=== PATIENT | female | born 1995 | race Caucasian/White ===

== ENCOUNTER 2022-01-04 17:11 | Emergency (ER) | payer BC ==
[~2022-01-04] VITALS: Ht 167.6 cm; Wt 81.4 kg
[2022-01-04] MEDS ORDERED: REGLAN 10MG10 MG/TAB PO (19:00)
[2022-01-04 19:11] VITALS: BP 111/69; PULSE 90; TEMP 98.4
== END 2022-01-04 19:14 | disposition home or self-care (01) ==
LOC: COL.ER 17:11
DX: O21.9 Vomiting of pregnancy, unspecified (principal); Z3A.13 13 weeks gestation of pregnancy
CPT/HCPCS: J2765; J7030

== ENCOUNTER 2022-06-30 07:29 | Inpatient (IN) | payer BC ==
[2022-06-30] VITALS (27 sets, daily range): BP systolic 72–141; BP diastolic 34–85; PULSE 75–110; TEMP 98–98.3
[~2022-06-30] VITALS: Ht 167.6 cm; Wt 89.5 kg
[~2022-06-30 07:29] MED LIST: REGLAN 10MG10 MG/TAB PO
[2022-06-30] MEDS ORDERED: GLUCOPHAGE500 MG/TAB PO (07:49)
[2022-06-30] MEDS ORDERED: PEPCID 20MG TAB20 MG PO (07:49)
[2022-06-30] MEDS ORDERED: PRENATAL TABLET PO (07:50)
[2022-06-30] MEDS ORDERED: ZYRTEC 10MG10 MG PO (07:50)
--- NOTE | 2022-06-30 08:00 | NUR ---
0735- Pt arrives on unit ambulatory with spouse, complaints of UCs every 6mins since 0300 this morning. Pt instructed to void and change into gown. 0738- Pt into bed. EFM and TOCO on and tracing well. O2 sat monitor on and tracing maternal HR. VSS. SVE. Assessments completed.
--- NOTE | 2022-06-30 08:09 | NUR ---
0809- Dr Smith, monitoring analyst physician, called after multiple attempts to contact Dr Bassett, see physician notification. His phone going straight to , message left [phone].
[2022-06-30 08:39] LABS: BASO % 0.2 % (0.0-2.0); EOS # 0.1 K/mm3 (0.0-0.7); EOS % 0.5 % (0.0-4.0); GRAN % 82.2 % (42.2-75.2); HEMOGLOBIN 10.8 g/dl (12.5-16.0); LYMPH # 1.3 K/mm3 (1.2-3.4); LYMPH % 9.4 % (20.0-51.0); MEAN CELL VOLUME 83 fl (80.0-100.0); MEAN CORPUSCULAR HEMOGLOBIN 27 pg (27-31); MEAN CORPUSCULAR HGB CONC 33 g/dl (33.0-37.0); MEAN PLATELET VOLUME 11.5 fl (7.4-10.4); MONO % 7.1 % (1.7-9.3); PLATELET COUNT 264 K/mm3 (130-400); RED BLOOD COUNT 3.99 M/mm3 (4.10-5.30); REDCELL DISTRIBUTION WIDTH-CV 12.7 % (11.5-14.5)
[2022-06-30 08:40] LABS: HEMATOCRIT 33.2 % (37.0-47.0)
--- NOTE | 2022-06-30 08:40 | NUR ---
0840 PT SITTING UP ON BED PREPARING FOR EPIDURAL PLACEMENT. NORA HILL, AT BEDSIDE. LR BOLUS RUNNING PER PROTOCOL, BP CUFF AND PULSE OX IN PLACE. EFM TRACING CAT 1 AT THIS TIME. VITAL SIGNS STABLE. 0850 TEST DOSE ADMINISTERED PER NORA HILL. PT TOLERATED WELL. EFM TRACING CAT 1, VS STABLE, PT RETURNED TO LL POSITION AND COMFORTABLE. WILL CONTINUE TO MONITOR.
--- NOTE | 2022-06-30 09:25 | NUR ---
0925 DR. EATON AT BEDSIDE FOR SVE. SVE 7 AT THIS TIME. AROM COMPLETED AT THIS TIME, CLEAR FLUID. PT TOLERATED PROCEDURE WELL. EFM TRACING CAT 1. WILL CONTINUE TO MONITOR,
--- NOTE | 2022-06-30 12:00 | NUR ---
1200 PT CALLED OUT STATING AN INCREASE IN PRESSURE, THIS RN TO ROOM FOR SVE. PT COMPLETE AND [address] EATON NOTIFIED AT THIS TIME AND GAVE VORB TO START PUSHING 1208 STARTED PUSHING WITH PT. GOOD MATERNAL EFFORT, EFM TRACING CAT 1. VS STABLE. ROOM SET UP FOR DELIVERY. APPROPRIATE STAFF NOTIFIED. 130[address] OF VIABLE FEMALE PER DR. EATON. INFANT PLACED ON MOTHERS CHEST, CORD CUT, AND CARE OF ASSUMED BY ROOSEVELT GONZALEZ. [address] EATON. UTERINE ATONY NOTED. FUNDUS BOGGY. MODERATE BLEEDING NOTED. DR. EATON GIVING FUNDAL MASSAGE AT THIS TIME. RECEIVED VERBAL ORDER FOR METHERGINE DOSE PER DR. EATON. VITAL SIGNS STABLE. 1325 PT BLOOD PRESSURE 72/34. PT NAUSEOUS AND DIZZY. HEAD OF BED FLAT, LR BOLUS AND PITOCIN BOLUS RUNNING AT THIS TIME. BLEEDING SCANT. 1331 BP 91/51. PT REPORTS FEELING BETTER. BLEEDING SCANT. WILL CONTINUE TO MONITOR.
[2022-07-01] VITALS: BP 112/64; PULSE 74; TEMP 98.4
[2022-07-01 04:30] VITALS: BP 116/60; PULSE 72; TEMP 98
[2022-07-01 08:10] VITALS: BP 120/66; PULSE 85; TEMP 97.6
[2022-07-01] MEDS ORDERED: IBU600 MG PO (08:49)
--- NOTE | 2022-07-01 08:57 | NUR ---
Initial visit; Parents thanked Air Hammer Stripper for offering congratulations and God's blessings for the of their daughter. Air Hammer Stripper thanked family for choosing [facility].
[2022-07-01 19:30] VITALS: BP 120/72; PULSE 80; TEMP 97.9
[2022-07-02 05:16] VITALS: BP 110/69; PULSE 80; TEMP 98.6
[2022-07-02 07:00] VITALS: BP 127/69; PULSE 90; TEMP 98.2
== END 2022-07-02 13:30 | disposition home or self-care (01) | DRG 807 ==
LOC: LDRO 07:29 → LDR 07:35 → OB 07:35
PROVIDERS: ADMIT Obstetrics & Gynecology
PROC: 10E0XZZ Delivery of Products of Conception, External Approach (ICD-10-PCS; principal; 2022-06-30)
PROC: 0HQ9XZZ Repair Perineum Skin, External Approach (ICD-10-PCS; 2022-06-30)
PROC: 0UQMXZZ Repair Vulva, External Approach (ICD-10-PCS; 2022-06-30)
PROC: 3E033VJ Introduction of Other Hormone into Peripheral Vein, Percutaneous Approach (ICD-10-PCS; 2022-06-30)
DX: O24.425 Gestational diabetes mellitus in childbirth, controlled by oral hypoglycemic drugs (principal); Z37.0 Single live birth; Z3A.38 38 weeks gestation of pregnancy; O99.02 Anemia complicating childbirth; D64.9 Anemia, unspecified; K21.9 Gastro-esophageal reflux disease without esophagitis; O99.62 Diseases of the digestive system complicating childbirth; O75.89 Other specified complications of labor and delivery; O70.0 First degree perineal laceration during delivery
CPT/HCPCS: J2210; J2590; J7120